=== PATIENT | female | born 1960 | race African-American/Black ===

== ENCOUNTER 2019-09-19 19:24 | Emergency (ER) | payer SELFPAY ==
[~2019-09-19] VITALS: Ht 167.6 cm; Wt 59.0 kg
[~2019-09-19 19:24] MED LIST: ATORVASTATIN CA10 MG ORAL; NORCO 5-325 TA1 EACH ORAL; PROZAC20 MG ORAL; RISPERDAL0.25 MG ORAL; TRAZODONE HCL150 MG ORAL
[2019-09-19] MEDS ORDERED: PROZAC10 MG ORAL (19:28)
[2019-09-19 19:42] VITALS: BP 132/80
--- NOTE | 2019-09-19 19:49 | Emergency Room Report ---
History of Present Illness General Chief Complaint: Alcohol Intoxication Source: Patient (Yosef Snow MD) Present Illness HPI Patient is a 58-year-old female presents after increased neck pain after a fall. Patient recently been drinking large amount of alcohol. Patient was found lying on the ground. She denies any current complaints of pain however appears to be somewhat intoxicated. (Yosef Snow MD) Allergies: Coded Allergies: No Known Allergies (Unverified , 07/27/13) Patient History Past Medical History: see triage record Now: No Reviewed Nursing Documentation: PMH: Agreed; PSxH: Agreed (Yosef Snow MD) Nursing Documentation-PMH Past Medical History: No History, Except For Hx Cardiac Problems: Yes - HYPERCHOLESTEROLEMIA (Yosef Snow MD) Review of Systems All Other Systems: limited - Review of systems: Review systems is limited by patient's being a poor historian (Yosef Snow MD) Physical Exam Vital Signs Date Time Temp Pulse Resp B/P (MAP) Pulse Ox O2 Delivery O2 Flow Rate FiO2 09/19/19 19:25 98.4 90 14 132/80 (97) 95 Room Air Sp02 EP Interpretation: reviewed, normal General Appearance: normal inspection, well appearing, no apparent distress, alert Head: atraumatic ENT: normal ENT inspection, hearing grossly normal, normal voice Neck: normal inspection, full range of motion, supple, no bony tend Respiratory: normal inspection, lungs clear, normal breath sounds, no respiratory distress, no retraction, no wheezing Cardiovascular #1: regular rate, rhythm, no edema Gastrointestinal: normal inspection, normal bowel sounds, non tender, soft, no guarding, no hernia Genitourinary: no CVA tenderness Musculoskeletal: normal inspection, back normal, normal range of motion Neurologic: alert, motor strength/tone normal, elevator service mechanic III-XII nml as tested, oriented x3, responsive, normal inspection, other - Slurred speech Psychiatric: normal inspection, judgement/insight normal, mood/affect normal (Yosef Snow MD) Medical Decision Making Diagnostic Impression: Primary Impression: Acute alcoholic intoxication Qualified Codes: F10.920 - Alcohol use, unspecified with intoxication, uncomplicated ER Course Patient presented for altered mental status. Differential diagnosis include was not limited to alcohol intoxication, head injury, intracranial hemorrhage among others. CT imaging was ordered due to patient's recent increase in altered mental status. Patient does not appear to have any evidence of acute trauma however given her headache and neck pain after fall CT imaging was ordered. CT imaging of the head showed no evidence of acute intracranial hemorrhage. (Yosef Snow MD) ER Course Patient signed out to me. She presents with alcohol intoxication. She admits to drinking alcohol. Not suicidal homicidal. She slept through the night without any issue. Will discharge home in the morning. She is not homeless. (Mark Burton MD) Last Vital Signs Date Time Temp Pulse Resp B/P (MAP) Pulse Ox O2 Delivery O2 Flow Rate FiO2 09/19/19 19:42 98.4 90 14 132/80 95 Room Air Status: improved (Yosef Snow MD) Status: improved (Mark Burton MD) Disposition: HOME, SELF-CARE Condition: Stable Patient Instructions: Alcohol Intoxication, [id number] Additional Instructions: Abstain from alcohol. Follow-up with your doctor in 7 days. Return if worse. Yosef Snow MD Sep 19, 2019 19:49 Mark Burton MD Sep 20, 2019 02:06
--- NOTE | 2019-09-19 21:33 | Diagnostic Imaging Report ---
EXAM: CT Cervical Spine Without Intravenous Contrast CLINICAL HISTORY: AMS TECHNIQUE: Axial computed tomography images of the cervical spine without intravenous contrast. CTDI is 5 mGy and DLP is 124 mGy-cm. One or more of the following dose reduction techniques were used: automated exposure control, adjustment of the mA and/or kV according to patient size, use of iterative reconstruction technique. COMPARISON: No relevant prior studies available. FINDINGS: Vertebrae: Negative for fracture or malalignment. Discs/spinal canal/neural foramina: Advance multilevel degenerative changes throughout the cervical spine. No spinal canal stenosis. Soft tissues: Unremarkable. Other findings: Motion degraded study. IMPRESSION: Negative for fracture or malalignment
--- NOTE | 2019-09-19 21:37 | Diagnostic Imaging Report ---
EXAM: CT Head Without Intravenous Contrast CLINICAL HISTORY: AMS TECHNIQUE: Axial computed tomography images of the head/brain without intravenous contrast. CTDI is 63 mGy and DLP is 1332 mGy-cm. One or more of the following dose reduction techniques were used: automated exposure control, adjustment of the mA and/or kV according to patient size, use of iterative reconstruction technique. COMPARISON: No relevant prior studies available. FINDINGS: Brain: Negative for intracranial mass, mass-effect or intracranial hemorrhage. No significant white matter disease. Ventricles: Unremarkable. No ventriculomegaly. Bones/joints: Unremarkable. No acute fracture. Soft tissues: Hyper attenuating left parietal scalp lesion of unknown etiology. Sinuses: Unremarkable as visualized. No acute sinusitis. Mastoid air cells: Unremarkable as visualized. No mastoid effusion. IMPRESSION: No acute intracranial abnormality.
[2019-09-19 22:55] VITALS: BP 138/84
[2019-09-20 03:00] VITALS: BP 132/80
[2019-09-20 06:25] VITALS: BP 134/76
[2019-09-20 06:28] VITALS: BP 134/76
== END 2019-09-20 06:28 | disposition home or self-care (01) ==
LOC: EDBD 19:24 → EMR 19:45
DX: F10.129 Alcohol abuse with intoxication, unspecified (principal); M54.2 Cervicalgia; E78.00 Pure hypercholesterolemia, unspecified
CPT/HCPCS: 70450; 72125; 99284